=== PATIENT | male | born 1955 | race Two or more races ===

== ENCOUNTER 2021-12-15 10:15 | Inpatient (IN) | payer OTHER ==
[~2021-12-15] VITALS: Ht 165.1 cm; Wt 105.2 kg
[2021-12-15] MEDS ORDERED: JENTADUETO XR1 EACH PO (14:46)
[2021-12-15] MEDS ORDERED: AMLODIPINE BESY10 MG PO (14:46)
[2021-12-15] MEDS ORDERED: ULTRAM50 MG PO (14:47)
[2021-12-15] MEDS ORDERED: TOPROL XL50 M1 PO (14:47)
[2021-12-15] MEDS ORDERED: NABUMETONE750 MG PO (14:47)
[2021-12-15] MEDS ORDERED: COZAAR100 MG PO (14:47)
[2021-12-15] MEDS ORDERED: PLAVIX75 MG PO (14:48)
[2021-12-15] MEDS ORDERED: GLIPIZIDE XL5 MG PO (14:48)
[2021-12-19] MEDS ORDERED: LEVALBUTEROL TA15 GM (10:22)
[2021-12-19] MEDS ORDERED: MOMETASONE FURO17 GM (10:22)
[2021-12-19] MEDS ORDERED: FLOVENT HFA12 GM (10:23)
[2021-12-19] MEDS ORDERED: SILDENAFIL CIT100 MG (10:23)
[2021-12-19] MEDS ORDERED: ALLERGY RELIEF10 MG (10:23)
[2021-12-19] MEDS ORDERED: MONTELUKAST SOD10 MG (10:23)
[2021-12-19] MEDS ORDERED: COLACE100 MG PO (15:36)
[2021-12-19] MEDS ORDERED: AMOX-CLAV 875-1 EAC1 PO (15:37)
[2021-12-19] MEDS ORDERED: MEDROLPACK PO (15:37)
[2021-12-19] MEDS ORDERED: NEURONTIN800 MG PO (15:37)
[2021-12-19] MEDS ORDERED: PERCOCET 5-3251 EACH PO (15:37)
== END 2021-12-23 00:30 | disposition home or self-care (01) | DRG 455 ==
LOC: O/R 12-19 05:01 → SURG 12-19 05:01 → SURH 12-19 10:15 → SURG 12-19 20:37
PROVIDERS: ADMIT Orthopaedic Surgery Orthopaedic Surgery of the Spine; ATTEND Orthopaedic Surgery Orthopaedic Surgery of the Spine
PROC: 0SG1071 Fusion of 2 or more Lumbar Vertebral Joints with Autologous Tissue Substitute, Posterior Approach, Posterior Column, Open Approach (ICD-10-PCS; 2021-12-19)
PROC: 0ST20ZZ Resection of Lumbar Vertebral Disc, Open Approach (ICD-10-PCS; 2021-12-19)
PROC: 0SG10A0 Fusion of 2 or more Lumbar Vertebral Joints with Interbody Fusion Device, Anterior Approach, Anterior Column, Open Approach (ICD-10-PCS; principal; 2021-12-19 10:30)
DX: M43.16 Spondylolisthesis, lumbar region (principal); M48.062 Spinal stenosis, lumbar region with neurogenic claudication; I10 Essential (primary) hypertension; E11.9 Type 2 diabetes mellitus without complications

== ENCOUNTER 2024-05-06 12:46 | Inpatient (IN) | payer OTHER ==
[~2024-05-06] VITALS: Ht 152.4 cm; Wt 104.3 kg
[~2024-05-06 12:46] MED LIST: ALLERGY RELIEF10 MG; AMLODIPINE BESY10 MG PO; AMOX-CLAV 875-1 EAC1 PO; COLACE100 MG PO; COZAAR100 MG PO; FLOVENT HFA12 GM; GLIPIZIDE XL5 MG PO; JENTADUETO XR1 EACH PO; LEVALBUTEROL TA15 GM; MEDROLPACK PO; MOMETASONE FURO17 GM; MONTELUKAST SOD10 MG; NABUMETONE750 MG PO; NEURONTIN800 MG PO; PERCOCET 5-3251 EACH PO; PLAVIX75 MG PO; SILDENAFIL CIT100 MG; TOPROL XL50 M1 PO; ULTRAM50 MG PO
[2024-05-06] MEDS ORDERED: AMLODIPINE-OLM1 EACH PO (13:02)
[2024-05-06] MEDS ORDERED: COZAAR100 MG PO (13:03)
[2024-05-06] MEDS ORDERED: ACETAMINOPHEN 500 MG GEL..CAP PO ONE ×2 (14:45→14:54)
[2024-05-06 15:12] LABS: URINE APPEARANCE Clear; URINE BILIRRUBIN Negative (NEGATIVE); URINE BLOOD Moderate; URINE COLOR Yellow; URINE GLUCOSE Negative (NEGATIVE); URINE KETONE Negative (NEGATIVE); URINE LEUKOCYTE Negative; URINE NITRATE Negative; URINE UROBILINOGEN 0.2 E.U./dl
[2024-05-06 15:15] LABS: URINE EPITHELIAL CELLS 1.8 uL (0.0-38.8); URINE WBC 3.4 uL (0.0-23.2)
[2024-05-06 15:20] LABS: URINE PROTEIN 100 (NEGATIVE); URINE RBC 1.8 uL (0.0-20.8)
[2024-05-06 15:34] LABS: CALCIUM 9.2 mg/dL (8.5-10.1); CREATININE SERUM 1.54 mg/dL (0.70-1.30); GFR 45.01; POTASSIUM 3.84 mEq/L (3.5-5.1)
[2024-05-06 15:44] LABS: HEMATOCRIT 45.6 % (39.0-48.0); HEMOGLOBIN 16.1 g/dL (13-16.00); MEAN CELL VOLUME 85.1 fL (80.0-100.00); MEAN CORPUSCULAR HEMOGLOBIN 30.1 pg (27.00-32.0); MEAN CORPUSCULAR HGB CONC 35.3 g/dl (32.0-36.0); PLATELET COUNT 139 K/uL (150-450); RED BLOOD COUNT 5.36 M/uL (4.00-6.00); RED CELL DISTRIBUTION WIDTH 13.9 % (11.5-14.5)
[2024-05-06] MEDS ORDERED: ASPIRIN 81 MG TAB.CHEW PO ONE (17:00)
[2024-05-06] MEDS ORDERED: CLOPIDOGREL BISULFATE 75 MG TABLET PO ONE ×2 (17:00→17:06)
[2024-05-06] MEDS ORDERED: 0.9 % SODIUM CHLORIDE 1,000 ML IV SCH (19:45)
[2024-05-06] MEDS ORDERED: ATORVASTATIN CALCIUM 40 MG TABLET PO SCH (19:49)
[2024-05-06] MEDS ORDERED: INSULIN LISPRO 1,000 UNIT/10 ML UNITS SUBCUTANEO PRN (20:00)
[2024-05-06] MEDS ORDERED: DEXTROSE 50 % IN WATER 0.5 G/ML DISP.SYRIN IV PRN (20:00)
[2024-05-06] MEDS ORDERED: ENOXAPARIN SODIUM 80 MG/0.8 ML SYRINGE SUBCUTANEO SCH (21:00)
[2024-05-06] MEDS ORDERED: ENOXAPARIN SODIUM 80 MG/0.8 ML SYRINGE SUBCUTANEO ONE (21:00)
[2024-05-06 21:45] LABS: CHOL HDL RATIO 4.1 (0-5.0); MAGNESIUM 2.1 mg/dL (1.8-2.4); PHOSPHOROUS 3.9 mg/dL (2.5-4.9)
[2024-05-06] MEDS ORDERED: NITROGLYCERIN IN 5 % DEXTROSE 50 MG/250 ML BOTTLE IV ONE (22:02)
[2024-05-06 22:21] VITALS: BP 137/71; O2SAT 98
[2024-05-06 23:24] VITALS: BP 130/81; O2SAT 97
[2024-05-07] VITALS (20 sets, daily range): BP systolic 117–176; BP diastolic 66–93; O2SAT 95–98
[2024-05-07] MEDS ORDERED: ACETAMINOPHEN 500 MG GEL..CAP PO ONE (00:14)
[2024-05-07 06:08] LABS: CKMB 25.9 NG/ML (0.5-3.6)
[2024-05-07] MEDS ORDERED: NITROGLYCERIN IN 5 % DEXTROSE 250 ML IV SCH ×2 (06:30→09:00)
[2024-05-07] MEDS ORDERED: CLOPIDOGREL BISULFATE 75 MG TABLET PO SCH (09:00)
[2024-05-07] MEDS ORDERED: METOPROLOL SUCCINATE 25 MG TAB.SR.24H PO SCH (09:00)
[2024-05-07] MEDS ORDERED: ASPIRIN 81 MG TAB.CHEW PO SCH (09:00)
[2024-05-07] MEDS ORDERED: LOSARTAN POTASSIUM 25 MG TABLET PO SCH (09:00)
[2024-05-07 14:31] LABS: CKMB 14.9 NG/ML (0.5-3.6)
[2024-05-07] MEDS ORDERED: LEVALBUTEROL HCL 0.63 MG/3 ML SOLUTION IH PRN (16:00)
[2024-05-08] VITALS (16 sets, daily range): BP systolic 113–174; BP diastolic 66–92; O2SAT 95–100
[2024-05-08] MEDS ORDERED: FAMOtidine 20 MG TABLET PO SCH ×2 (05:36→17:00)
[2024-05-08] MEDS ORDERED: ACETAMINOPHEN 500 MG GEL..CAP PO PRN (05:45)
[2024-05-08 11:19] LABS: ALBUMIN 2.9 gm/dL (3.4-5.0); BILIRUBIN TOTAL 0.78 mg/dL (0.3-1.2); CALCIUM 7.6 mg/dL (8.5-10.1); CREATININE SERUM 1.33 mg/dL (0.70-1.30); GFR 53.31; GLOBULINA 2.8 G/DL (2.4-3.5); POTASSIUM 4.07 mEq/L (3.5-5.1); TOTAL PROTEIN 5.7 gm/dL (6.4-8.2)
[2024-05-08] MEDS ORDERED: CHLORHEXIDINE GLUCONATE 120 ML BOTTLE TOP ONE (11:56)
[2024-05-09] VITALS (12 sets, daily range): BP systolic 109–158; BP diastolic 59–76; O2SAT 96–100
== END 2024-05-09 12:30 | disposition designated cancer center or children's hospital (05) | DRG 281 ==
LOC: ER 12:48 → ICU-2 20:35 → ICU 05-07 21:06
PROVIDERS: General Practice; Internal Medicine; ADMIT Internal Medicine; ATTEND Internal Medicine
PROC: 4A12X4Z Monitoring of Cardiac Electrical Activity, External Approach (ICD-10-PCS; principal; 2024-05-06)
PROC: B246ZZZ Ultrasonography of Right and Left Heart (ICD-10-PCS; 2024-05-06)
DX: I21.4 Non-ST elevation (NSTEMI) myocardial infarction (principal); N17.9 Acute kidney failure, unspecified; I13.10 Hypertensive heart and chronic kidney disease without heart failure, with stage 1 through stage 4 chronic kidney disease, or unspecified chronic kidney disease; I25.10 Atherosclerotic heart disease of native coronary artery without angina pectoris; I24.9 Acute ischemic heart disease, unspecified; E11.22 Type 2 diabetes mellitus with diabetic chronic kidney disease; N18.9 Chronic kidney disease, unspecified; Z79.84 Long term (current) use of oral hypoglycemic drugs; Z95.818 Presence of other cardiac implants and grafts